=== PATIENT | female | born 1980 | race Caucasian/White ===

== ENCOUNTER 2017-10-23 08:00 | Emergency (ER) | payer SELFPAY ==
[2017-10-23] MEDS ORDERED: Ketorolac Tromethamine 30 MG/ML VIAL ONE (09:17)
[2017-10-23] MEDS ORDERED: Fentanyl 100 MCG/2 ML VIAL ONE (09:17)
[2017-10-23] MEDS ORDERED: Ondansetron HCl/PF 4 MG/2 ML Vial ONE (09:17)
[2017-10-23] MEDS ORDERED: Dexamethasone 10 MG/ML VIAL ONE (09:17)
[2017-10-23] MEDS ORDERED: Metoclopramide HCl 10 MG/2 ML VIAL ONE (09:17)
== END 2017-10-23 10:42 | disposition home or self-care (01) ==
LOC: ERS 08:00
DX: G43.909 Migraine, unspecified, not intractable, without status migrainosus (principal); F17.210 Nicotine dependence, cigarettes, uncomplicated
CPT/HCPCS: 96365; 96375; J1100; J1885; J2405; J2765; J3010

== ENCOUNTER 2017-10-26 09:19 | Emergency (ER) | payer SELFPAY ==
[2017-10-26 09:48] LABS: Bilirubin Negative (Negative); Blood, Urine Moderate (Negative); Clarity TURBID (Clear); Glucose, Urine (Dipstick) Negative (Negative); Leukocyte Large (Negative); Nitrite Negative (Negative); Protein, Urine (Dipstick) 100 mg/dL (Neg-Trace); Specific Gravity, Urine 1.009 (1.002-1.036); pH, Urine 6.5 (5.0-9.0)
[2017-10-26 09:49] LABS: Bacteria/HPF 2+ HPF (None Seen); Hyaline Casts/LPF 0-3 HYALINE CAST LPF (0-3 Hyaline); Pathc Cast-AUWi Flag 0.31 (0-2.49); Squamous Epithelial None Seen HPF (0-3)
[2017-10-26 09:57] LABS: Yeast-AUWi Flag 277.9 (0-25.0)
[2017-10-26] MEDS ORDERED: Nitrofurantoin Monohyd/M-Cryst 100 MG CAP PO SCH (10:00)
[2017-10-26 10:01] LABS: Pregnancy Test - Urine (BHCG) Negative (Negative); Pregu Control Background? CLEAR/WHITE (CLR/WHITE); Pregu Control Bar Appear? YES (CONTROL BAR); Specific Gravity 1.009 (1.002-1.036)
[2017-10-26 10:17] LABS: Renal Epithelial 0-3 HPF (0-3); Yeast-All Forms None Seen HPF (None Seen)
== END 2017-10-26 10:51 | disposition home or self-care (01) ==
LOC: ERS 09:19
DX: N39.0 Urinary tract infection, site not specified (principal); G43.909 Migraine, unspecified, not intractable, without status migrainosus; F17.210 Nicotine dependence, cigarettes, uncomplicated
CPT/HCPCS: 81003; 81015; 81025; 87077; 87086; 87186; 99406

== ENCOUNTER 2017-10-28 10:35 | Inpatient (IN) | payer SELFPAY ==
[2017-10-28] MEDS ORDERED: Ondansetron HCl/PF 4 MG/2 ML Vial ONE ×2 (11:19→13:27)
[2017-10-28 11:23] LABS: Band 3 % (5-11); Hemoglobin 16.3 g/dL (12.0-16.0); Lymphocytes 8 % (21-51); MDiff Complete? YES; Mean Corpuscular HGB CONC 33.5 g/dL (32.0-36.0); Mean Corpuscular Hemoglobin 31.4 pg (27.0-31.0); Mean Corpuscular Volume 93.6 fl (81.0-99.0); Mean Platelet Volume 6.8 fL (7.4-10.4); Monocytes 12 % (0-10); Neutrophil 77 % (42-75); Platelet Count 313 thou/uL (130-400); RBC Distribution Width 11.2 % (11.5-14.5); Red Blood Cell (RBC) Count 5.19 mill/uL (4.20-5.40); White Blood Cell (WBC) Count 23.1 thou/uL (4.8-10.8)
[2017-10-28 11:40] LABS: Bilirubin Large (Negative); Blood, Urine Large (Negative); Clarity CLOUDY (Clear); Glucose, Urine (Dipstick) Negative (Negative); Leukocyte Moderate (Negative); Nitrite Positive (Negative); Protein, Urine (Dipstick) 100 mg/dL (Neg-Trace); Specific Gravity, Urine 1.024 (1.002-1.036); pH, Urine 5.5 (5.0-9.0)
[2017-10-28 11:43] LABS: ALT (SGPT) 109 U/L (8-55); AST (SGOT) 45 U/L (5-34); Albumin 4.3 g/dL (3.5-5.0); Alkaline Phosphatase 128 U/L (40-150); Anion Gap 15 mmol/L (10-20); BUN (Urea Nitrogen) 6 mg/dL (7.0-18.7); Bilirubin, Total 1.6 mg/dL (0.2-1.2); Calc. Creatinine Clearance 0 mL/min (70-130); Calcium 10.1 mg/dL (7.8-10.44); Carbon Dioxide 22 mmol/L (22-29); Chloride 101 mmol/L (98-107); Estimated GFR-MDRD 76; Globulin 3.8 g/dL (2.4-3.5); Glucose 102 mg/dL (70-105); Potassium 3.8 mmol/L (3.5-5.1); Protein, Total 8.1 g/dL (6.0-8.3); Sodium 134 mmol/L (136-145)
[2017-10-28 11:45] LABS: Hyaline Casts/LPF 0-3 HYALINE CAST LPF (0-3 Hyaline); Squamous Epithelial 0-3 HPF (0-3); WBC/HPF 21-50 HPF (0-3)
[2017-10-28 11:51] LABS: Pregnancy Test - Urine (BHCG) Negative (Negative); Pregu Control Background? CLEAR/WHITE (CLR/WHITE); Pregu Control Bar Appear? YES (CONTROL BAR); Specific Gravity 1.024 (1.002-1.036); Yeast-AUWi Flag 61.9 (0-25.0)
[2017-10-28] MEDS ORDERED: Ketorolac Tromethamine 30 MG/ML VIAL ONE (11:56)
[2017-10-28 12:01] LABS: Bacteria/HPF 2+ HPF (None Seen); RBC/HPF 21-50 HPF (0-3); Yeast-All Forms None Seen HPF (None Seen)
[2017-10-28] MEDS ORDERED: cefTRIAXone\\ROCEPHIN 2 GM in Sodium Chloride 0.9% 100 ML IVPB SCH (13:30)
[2017-10-28 15:56] VITALS: BMI 29.3
[2017-10-28] MEDS ORDERED: Acetaminophen 325 MG TAB PO PRN (15:57)
[2017-10-28] MEDS ORDERED: Ondansetron HCl/PF 4 MG/2 ML Vial IVP PRN (15:57)
[2017-10-28] MEDS ORDERED: Ondansetron ODT 4 MG TAB SL PRN (15:57)
[2017-10-28] MEDS ORDERED: Dextrose 5 %-0.45 % NaCl 1,000 ML IV SCH (16:00)
--- NOTE | 2017-10-28 16:43 | CT ---
CT ABDOMEN AND PELVIS NONCONTRAST: History: Left flank pain. Comparison: 03-11-12 FINDINGS: Each renal collecting system, ureter, and the urinary bladder are decompressed without stone apparent . Lack of contrast limits evaluation for other abnormalities. No evidence of bowel obstruction. Minimal stranding is present within the left perinephric fat. Sterilization clips are apparent at each adnex a. IMPRESSION: 1. No CT evidence of urinary tract obstruction or calcification. 2. Subtle stranding in the fat around the left kidney suggests adjacent inflammation. Clinical correl ation regarding other signs and symptoms of left nephritis is required. POS: [facility]
[2017-10-28] MEDS ORDERED: Senokot 8.6 MG TAB PO PRN (16:46)
[2017-10-28] MEDS ORDERED: Docusate 100 MG CAP PO PRN (16:46)
[2017-10-28] MEDS ORDERED: Ketorolac Tromethamine 30 MG/ML VIAL IVP PRN (16:51)
[2017-10-28] MEDS: Sodium Chloride 0.9% 1,000 ML IV SCH (18:35)
[2017-10-28 18:37] LABS: HBSAg Index 0.16 S/CO (0-0.99); Hep B Surf Ag Non-Reactive S/CO (NonReactive); Hep C IgG Ab Non-Reactive (NonReactive)
[2017-10-28 18:38] LABS: HBSAB Concentration 0.13 mIU/mL; Hep B Surf AB Non-Reactive (NonReactive)
[2017-10-28 18:42] LABS: Hep B Core Total Ab Non-Reactive (NonReactive); Hep B Core Total Index 0.07 S/CO (0-0.79)
[2017-10-28 18:45] LABS: HIV (1/2) Antibody/Antigen Non-Reactive (NonReactive); HIV 1/2 INDEX 0.21 S/CO (<1.00)
--- NOTE | 2017-10-28 19:59 | HP-2 ---
DATE OF ADMISSION: 10/28/2017 PRIMARY CARE PHYSICIAN: Mal Burgess. ATTENDING: Hernan Frazier M.D. RESIDENT: Aby Carrillo MD HISTORIAN: Patient. CHIEF COMPLAINT: Dysuria and fever. HISTORY OF PRESENT ILLNESS: This is a 37-year-old female with a recent diagnosis of UTI on Sunday in the ER. She was discharged and sent home on ; however, she states over the weekend she had worsening dysuria, lower back pain, and fever which prompted her to come back to the ER. In the ER, she received Toradol, morphine, Rocephin, 2 liters normal saline, and Zofran. PAST MEDICAL HISTORY: Migraines and pain. PAST SURGICAL HISTORY: Two C-sections and bilateral tubal ligation. ALLERGIES: None. MEDICATIONS: None. FAMILY HISTORY: None. SOCIAL HISTORY: Endorses 1 pack per day for 20 years. Alcohol, drinks occasionally. Drugs, endorses marijuana use approximately 1 month ago. REVIEW OF SYSTEMS: GENERAL: Endorses fevers and chills. Denies weight, appetite or sleep changes. EYES: No vision changes or eye pain. ENT: No nasal congestion or rhinorrhea. RESPIRATORY: No cough, congestion, shortness of breath. CARDIOVASCULAR: No chest pain or palpitations or edema. GASTROINTESTINAL: Endorses nausea and vomiting since . Endorses diarrhea since Sunday, says it is watery. GENITOURINARY: Denies incontinence or dysuria. SKIN: Denies rashes or lesions. MUSCULOSKELETAL: Denies pain or tenderness. NEUROLOGIC: Denies weakness, numbness, but does endorse a headache. PSYCHIATRIC: Denies anxiety, depression. PHYSICAL EXAMINATION: VITAL SIGNS: Blood pressure 109/65, pulse of 75-115, respiratory rate 20-24, T- max 99, pulse ox 98% on room air, current weight 80 kilograms. GENERAL: Alert and oriented x4 currently in pain, well nourished, appropriately interactive. EYES: PERRLA, EOMI. ENT: Nasal mucosa and oropharynx within normal limit. NECK: Supple. No lymphadenopathy or thyromegaly. CARDIOVASCULAR: Regular rate and rhythm. No murmur, rub, or gallop. LUNGS: Normal effort, no retractions, clear to auscultation bilaterally. SKIN: Warm and dry. No rash. ABDOMEN: Soft, tender to palpation in the left upper quadrant. CVA tenderness on the left side. EXTREMITIES: No clubbing, cyanosis or edema. MUSCULOSKELETAL: Structure within normal limits. Full range of motion. NEUROLOGIC: GCS of 15. PSYCHIATRIC: Appropriate. LABORATORY DATA: CBC: 23.1, 16.3, 48.5, 330. CMP: 134, 3.8, 101, 22, 6, 6.84, 102. AST and ALT 45 and 109, alkaline phosphatase 128. Calcium 10.1, total protein 8.1, albumin 4.3, total bilirubin 1.6. UA, blood large, protein high, leukocyte esterase moderate, nitrites positive, ketones 15, glucose negative, rbc 21-50, white blood cells 21-50, bacteria 2+, positive urobilinogen. Beta hCG negative. No yeast seen. IMAGING: Abdominal CT negative for urinary tract obstruction or calcification, left kidney positive for stranding. Negative for bowel obstruction. ASSESSMENT AND PLAN: This is a 37-year-old female with symptoms of dysuria admitted with symptoms of dysuria. She has failed outpatient treatment for urinary tract infection, admitted for sepsis secondary to pyelonephritis and elevated liver function tests. 1. Sepsis secondary to pyelonephritis. She was admitted to inpatient medical, started on Rocephin IV and normal saline 150 mL an hour. Blood and urine cultures were drawn. CBC and BMP will be repeated in the morning. Vitals q.4 hours. Monitor urine output, strict I's and O's. Morphine q.2 hours 2 mg p.r.n. Toradol 30mg IV q6h prn pain as well. 2. Elevated liver enzymes. We will order a hepatitis panel, direct, bilirubin , and HIV to further assess. DISPOSITION AND LENGTH OF HOSPITAL STAY: 3 days. Symptomatic medications will be provided. History and physical exam as well as management were discussed with Dr. Frazier and Dr. Quintana. [place]
[2017-10-28] MEDS ORDERED: FLU VACC QS2017-18 36 mo. & older 0.5 ML SYRINGE IM ONE (21:00)
[2017-10-29] MEDS: Sodium Chloride 0.9% 1,000 ML IV SCH ×4 (00:17→23:55)
--- NOTE | 2017-10-29 06:32 | PDOC.FM ---
- Subjective Subjective: No acute events overnight; Pain uncontrolled. Otherwise no complaints - Objective MAR Reviewed: Yes Vital Signs & Weight: Vital Signs (12 hours) Temp Pulse Resp BP Pulse Ox 10/29/17 05:41 99 F 87 18 113/71 95 10/28/17 22:17 99.1 F 88 20 110/71 98 10/28/17 20:00 97.5 F L 80 14 98 Weight Weight 85.049 kg I&O: 10/27/17 10/28/17 10/29/17 06:59 06:59 06:59 Intake Total 2089 Output Total 0 Balance 2089 Result Diagrams: 10/29/17 07:43 10/29/17 05:10 <Aby Salcedo - Last Filed: 10/29/17 09:11> - Objective Vital Signs & Weight: Vital Signs (12 hours) Temp Pulse Resp BP Pulse Ox 10/29/17 12:00 97.7 F 74 18 113/73 98 10/29/17 08:00 98.6 F 83 16 96 10/29/17 07:51 98.6 F 83 16 95/64 96 10/29/17 05:41 99 F 87 18 113/71 95 Weight Admit Weight 85.049 kg Weight 85.049 kg I&O: 10/28/17 10/29/17 10/30/17 06:59 06:59 06:59 Intake Total 2089 Output Total 0 Balance 2089 Result Diagrams: 10/29/17 07:43 10/29/17 05:10 <Shavonne Crum - Last Filed: 10/29/17 17:10> Phys Exam - Physical Examination Constitutional: NAD Respiratory: wheezing present, clear to auscultation bilateral crackles on the left side Cardiovascular: RRR, no significant murmur Gastrointestinal: soft cva left tenderness, suprapubic tenderness <Aby Salcedo - Last Filed: 10/29/17 09:11> Dx/Plan (1) Pyelonephritis Code(s): N12 - TUBULO-INTERSTITIAL NEPHRITIS, NOT SPCF ACUTE OR CHRONIC Status: Acute (2) Sepsis Code(s): A41.9 - SEPSIS, UNSPECIFIED ORGANISM Status: Acute (3) Elevated LFTs Code(s): R79.89 - OTHER SPECIFIED ABNORMAL FINDINGS OF BLOOD CHEMISTRY Status : Acute (4) Hyperbilirubinemia Code(s): E80.6 - OTHER DISORDERS OF BILIRUBIN METABOLISM Status: Acute (5) Tobacco abuse Code(s): Z72.0 - TOBACCO USE Status: Acute (6) Increased sputum production Code(s): R09.3 - ABNORMAL SPUTUM Status: Acute - Plan Plan: 37 yo f with failed outpt treatment of UTI, admitted for sepsis 2/2 pyelonephritis. 1.)Sepsis 2/2 pyelonephritis- improved. -Continue rocephin -Blood and urine cultures pending -Prior UA grew e.coli (sens to rocephin) -Continue NS @ 150 ml/hr 2.)Pain control-uncontrolled on morphine 2mg q2h -Will add toradol 30mg IV q6h prn pain 3.)Elevated LFT's-CT abdomen said gall bladder and pancreas were normal -Will trend LFT's -Hep panel negative - HIV negative 4.)Hyperbilirubinemia-ordered a direct bili 5.)Current Tobacco use, with increased sputum, green colored-ordered a CXR <Aby Salcedo - Last Filed: 10/29/17 09:11> Attending Addendum - Attending Addendum I personally evaluated the patient and discussed the management with Dr. Salcedo. I agree with the History, Examination, Assessment and Plan documented above with any addition or exceptions noted below. The patient is still having more pain. Will add toradol. The patient will continue antibiotics. Cultures pending. <Shavonne Crum - Last Filed: 10/29/17 17:10>
[2017-10-29 06:49] LABS: Anion Gap 10 mmol/L (10-20); BUN (Urea Nitrogen) Less than 4 mg/dL (7.0-18.7); Calc. Creatinine Clearance 164 mL/min (70-130); Calcium 8.2 mg/dL (7.8-10.44); Carbon Dioxide 19 mmol/L (22-29); Chloride 106 mmol/L (98-107); Estimated GFR-MDRD Greater than 90; Glucose 97 mg/dL (70-105); Potassium 3.4 mmol/L (3.5-5.1); Sodium 132 mmol/L (136-145)
[2017-10-29 08:17] LABS: #Basophils 0.1 thou/uL (0.0-0.2); #Eosinphils 0.1 thou/uL (0.0-0.7); #Lymphocytes 2.5 thou/uL (1.20-3.40); #Monocytes 1.7 thou/uL (0.11-0.59); %Basophils 0.9 % (0.0-1.0); %Eosinophils 0.4 % (0.0-10.0); %Lymphocytes 20.3 % (21.0-51.0); %Monocytes 13.4 % (0.0-10.0); Hemoglobin 11.8 g/dL (12.0-16.0); Mean Corpuscular HGB CONC 33.6 g/dL (32.0-36.0); Mean Corpuscular Hemoglobin 31.8 pg (27.0-31.0); Mean Corpuscular Volume 94.7 fl (81.0-99.0); Mean Platelet Volume 6.8 fL (7.4-10.4); Platelet Count 295 thou/uL (130-400); RBC Distribution Width 11.1 % (11.5-14.5); Red Blood Cell (RBC) Count 3.71 mill/uL (4.20-5.40); White Blood Cell (WBC) Count 12.3 thou/uL (4.8-10.8)
[2017-10-29 10:36] LABS: Bilirubin, Direct 0.4 mg/dL (0.1-0.3)
[2017-10-29] MEDS ORDERED: Ketorolac Tromethamine 30 MG/ML VIAL IVP SCH (10:38)
[2017-10-29] MEDS: Ketorolac Tromethamine 30 MG/ML VIAL IVP SCH ×4 (10:40→23:56)
[2017-10-29] MEDS: Ondansetron HCl/PF 4 MG/2 ML Vial IVP PRN ×2 (10:40→17:37)
--- NOTE | 2017-10-29 11:10 | RAD ---
PA AND LATERAL VIEWS CHEST: HISTORY: Cough. FINDINGS: The cardiomediastinum is normal. The lungs are expanded without focal areas of consolidation, pneumo thorax, or pleural effusions. There are mild degenerative changes in the spine. Bilateral nipple pi ercings are present. IMPRESSION: No radiographic evidence of acute cardiopulmonary process. POS: [facility]
[2017-10-29] MEDS: cefTRIAXone\\ROCEPHIN 2 GM in Sodium Chloride 0.9% 100 ML IVPB SCH (15:59)
[2017-10-30] MEDS: Sodium Chloride 0.9% 1,000 ML IV SCH ×2 (03:18→14:16)
[2017-10-30 05:29] LABS: #Eosinphils 0.1 thou/uL (0.0-0.7); #Monocytes 0.8 thou/uL (0.11-0.59); %Basophils 0.4 % (0.0-1.0); %Eosinophils 1.4 % (0.0-10.0); %Lymphocytes 28.8 % (21.0-51.0); %Neutrophils 58.4 % (42.0-75.0); Hemoglobin 11.9 g/dL (12.0-16.0); Mean Corpuscular HGB CONC 31.9 g/dL (32.0-36.0); Mean Corpuscular Hemoglobin 30.5 pg (27.0-31.0); Mean Corpuscular Volume 95.6 fl (81.0-99.0); Mean Platelet Volume 8.4 fL (7.4-10.4); Platelet Count 108 thou/uL (130-400); RBC Distribution Width 11.4 % (11.5-14.5); Red Blood Cell (RBC) Count 3.91 mill/uL (4.20-5.40); White Blood Cell (WBC) Count 6.9 thou/uL (4.8-10.8)
[2017-10-30] MEDS: Ketorolac Tromethamine 30 MG/ML VIAL IVP SCH ×2 (05:43→14:00)
[2017-10-30 06:41] LABS: Anion Gap 9 mmol/L (10-20); BUN (Urea Nitrogen) 5 mg/dL (7.0-18.7); Calc. Creatinine Clearance 148 mL/min (70-130); Calcium 8.1 mg/dL (7.8-10.44); Carbon Dioxide 22 mmol/L (22-29); Chloride 108 mmol/L (98-107); Estimated GFR-MDRD Greater than 90; Glucose 83 mg/dL (70-105); Potassium 3.1 mmol/L (3.5-5.1); Sodium 136 mmol/L (136-145)
--- NOTE | 2017-10-30 07:00 | PDOC.FM ---
- Subjective Subjective: No acute events overnight. Pain controlled. - Objective MAR Reviewed: Yes Vital Signs & Weight: Vital Signs (12 hours) Temp Pulse Resp BP Pulse Ox 10/30/17 06:04 99.1 F 10/30/17 00:05 98.5 F 76 18 104/71 97 10/29/17 20:00 98.2 F 72 16 102/71 98 Weight Admit Weight 85.049 kg Weight 85.049 kg I&O: 10/28/17 10/29/17 10/30/17 06:59 06:59 06:59 Intake Total 2090 5350 Output Total 0 Balance 2089 5350 Result Diagrams: 10/30/17 05:11 10/30/17 05:11 <Aby Salcedo - Last Filed: 10/30/17 09:25> - Objective Vital Signs & Weight: Vital Signs (12 hours) Temp Pulse Resp BP Pulse Ox 10/30/17 12:00 97.4 F L 69 18 116/76 96 10/30/17 08:42 98.2 F 65 16 116/80 94 L 10/30/17 08:00 98.2 F 65 16 94 L 10/30/17 06:04 99.1 F Weight Admit Weight 85.049 kg Weight 85.049 kg I&O: 10/29/17 10/30/17 10/31/17 06:59 06:59 06:59 Intake Total 0 5350 Output Total 0 Balance 2089 5350 Result Diagrams: 10/30/17 05:11 10/30/17 05:11 <Shavonne Crum - Last Filed: 10/30/17 16:59> Phys Exam - Physical Examination Constitutional: NAD HEENT: PERRLA, moist MMs Respiratory: no wheezing, no rales, clear to auscultation bilateral Cardiovascular: RRR, no significant murmur Gastrointestinal: soft, non-tender, no distention Musculoskeletal: no edema Neurological: non-focal Psychiatric: normal affect, A&O x 3 Skin: no rash <Aby Salcedo - Last Filed: 10/30/17 09:25> Dx/Plan (1) Pyelonephritis Code(s): N12 - TUBULO-INTERSTITIAL NEPHRITIS, NOT SPCF ACUTE OR CHRONIC Status: Acute (2) Sepsis Code(s): A41.9 - SEPSIS, UNSPECIFIED ORGANISM Status: Acute (3) Elevated LFTs Code(s): R79.89 - OTHER SPECIFIED ABNORMAL FINDINGS OF BLOOD CHEMISTRY Status : Acute (4) Hyperbilirubinemia Code(s): E80.6 - OTHER DISORDERS OF BILIRUBIN METABOLISM Status: Acute (5) Tobacco abuse Code(s): Z72.0 - TOBACCO USE Status: Acute (6) Increased sputum production Code(s): R09.3 - ABNORMAL SPUTUM Status: Acute - Plan Plan: 37 yo f with failed outpt treatment of UTI, admitted for sepsis 2/2 pyelonephritis. 1.)Sepsis 2/2 pyelonephritis- improved. -Continue rocephin -Blood and urine cultures pending -Prior UA grew e.coli (sens to rocephin) -We will decrease fluids today to NS @ 100 ml/hr 2.)Pain control-controlled. - continue morphine 2mg q2h - Will continue toradol 30mg IV q6h prn pain 3.)Elevated LFT's-CT abdomen said gall bladder and pancreas were normal -Will trend LFT's -Hep panel negative - HIV negative 4.)Hyperbilirubinemia- - direct bili elevated 5.)Current Tobacco use- counceled on cessation. <Aby Salcedo - Last Filed: 10/29/17 09:11> <Aby Salcedo - Last Filed: 10/30/17 09:25> Attending Addendum - Attending Addendum I personally evaluated the patient and discussed the management with Dr. Salcedo. I agree with the History, Examination, Assessment and Plan documented above with any addition or exceptions noted below. Patient's pain is resolved. Appetite is improved. Will d/c on oral antibiotics. <Shavonne Crum - Last Filed: 10/30/17 16:59>
[2017-10-30] MEDS ORDERED: Ibuprofen 800 MG TAB PO PRN (11:28)
[2017-10-30 12:15] VITALS: BP 116/76; TEMP 97.4
[2017-10-30] MEDS ORDERED: Ketorolac Tromethamine 30 MG/ML VIAL IVP SCH (14:30)
[2017-10-30] MEDS: cefTRIAXone\\ROCEPHIN 2 GM in Sodium Chloride 0.9% 100 ML IVPB SCH (15:26)
[2017-10-30] MEDS ORDERED: buPROPion 75 MG TAB PO SCH (21:00)
--- NOTE | 2017-11-01 15:33 | DIS-2 ---
DATE OF ADMISSION: 10/28/2017 DATE OF DISCHARGE: 10/30/2017 ADMITTING ATTENDING: Dr. Hernan Frazier ADMITTING RESIDENT: Dr. Aby Carrillo DISCHARGE ATTENDING: Dr. Shavonne Crum DISCHARGE RESIDENT: Dr. Aby Carrillo CONSULTATIONS: None. PROCEDURES: Abdomen and pelvis CT, no CT evidence of urinary tract obstruction or calcification. Subtle stranding in the fat around the left kidney, suggests adjacent inflammation. Clinical correlation regarding other signs and symptoms of left nephritis is required. Chest x-ray; no radiographic evidence of acute cardiopulmonary process. PRIMARY DIAGNOSES: 1. Sepsis secondary to pyelonephritis. 2. Pyelonephritis. DISCHARGE MEDICATIONS: 1. Ciprofloxacin 500 mg oral twice daily. 2. Ibuprofen 800 mg oral 3 times a day as needed for pain. 3. Bupropion 150 mg oral twice daily for smoking cessation. HISTORY OF PRESENT ILLNESS AND HOSPITAL COURSE: Ms. Dora Tolbert is a 37- year-old female with a recent diagnosis of UTI in the ER, was sent home on Macrobid; however returns with worsening pain and fever over the weekend. She in the ER was given Toradol, morphine, Rocephin, and 2 liters normal saline and Zofran. She has a past medical history of migraines. She is an active smoker, endorsed 1 pack per day for 20 years. On admission, she had a leukocytosis of 23, she had elevated liver enzymes of 45 and 109, and a normal alkaline phosphatase of 128. Her urine showed a large amount of blood and protein, leukocyte esterase, positive nitrites, positive 15 ketones, negative for glucose, red blood cells at 21-50, white blood cells 20-50, 2+ bacteria, positive urobilinogen. Her beta hCG was negative. Her vitals on admission: she was tachycardic to 115. She had increased respiratory rate of 20-24. She had a temperature of 99. She was satting 98% on room air. On initial exam, she had CVA tenderness on the left side. Otherwise, her belly was soft and mildly tender in the left upper quadrant. Cardiovascular exam showed a regular rate and rhythm. No murmurs or gallops. Lungs showed normal effort, no retractions, clear to auscultation bilaterally. Her abdominal CT was negative for urinary tract obstruction or calcification. There was some left kidney stranding, but also negative for bowel obstruction. She was admitted for sepsis secondary to pyelonephritis on the left kidney as well as elevated liver enzymes. 1. Sepsis secondary to pyelonephritis. She was admitted inpatient medical started on Rocephin IV was provided with normal saline at 150 an hour. Blood and urine cultures were drawn. Repeat CBC and BMPs were placed. Her vitals were checked every 4 hours. Urine output was monitored. She was started on morphine q.2h. of 2 mg p.r.n. for pain as well as Toradol 30 mg IV q.6h. p.r.n. pain. Overnight and the following day, her pain became adequately controlled. She improved on Rocephin IV. On hospital day #2, she was continued on Rocephin IV. At 5 days her blood culture was negative. Her initial urine culture from the Sunday before she was admitted grew E. coli which was sensitive to ceftriaxone. She was transitioned to ciprofloxacin p.o. The culture was sensitive to this medicine as well and when she was tolerating p.o., we transitioned her over. Of note, this UTI was resistant to Bactrim, ampicillin, and sulbactam and gentamicin. During her hospitalization, her vitals were within normal limits. She was transitioned off IV fluids and p.o. intake was encouraged. She was discharged on p.o. ciprofloxacin 500 mg for a total of 10 days. For pain control she was provided with 800 mg ibuprofen t.i.d. p.r.n. pain and it was recommended that she follow up with her primary care physician within 1 week. 2. Elevated liver function tests. The CT of the abdomen reported that the gallbladder and pancreas were within normal limits. Her LFTs were trended. Her hepatitis panel was negative. Her HIV was negative. Her LFTs down trended during her hospitalization. 3. Hyperbilirubinemia. She had an elevated total and direct bilirubin. Once again never described any right upper quadrant pain. No evidence of gallstones on abdominal CT. Recommended outpatient followup. DISPOSITION: Stable. DISCHARGE INSTRUCTIONS: 1. Location: Home. 2. Diet: Encouraged p.o. intake of adequate water intake. Recommended a heart healthy diet. 3. Activity: As tolerated. 4. Followup: Recommended follow up with primary care physician within 1 week. [place]
== END 2017-10-30 15:49 | disposition home or self-care (01) | DRG 872 ==
LOC: ERS 10:35 → T4-B 15:53
PROVIDERS: ADMIT Family Medicine; ATTEND Family Medicine
DX: A41.9 Sepsis, unspecified organism (principal); N10 Acute pyelonephritis; E80.6 Other disorders of bilirubin metabolism; F17.210 Nicotine dependence, cigarettes, uncomplicated; R09.3 Abnormal sputum
CPT/HCPCS: 36415; 71046; 74176; 80048; 80053; 81003; 81015; 81025; 82248; 83605; 84450; 84460; 85025; 86704; 86706; 86708; 86803; 87040; 87086; 87340; 87389; 96361; 96374; 96375; 96376; 99406; J0696; J1885; J2270; J2405; J7050

== ENCOUNTER 2018-04-03 15:03 | Emergency (ER) | payer SELFPAY ==
[2018-04-03] MEDS ORDERED: Ondansetron HCl/PF 4 MG/2 ML Vial ONE (16:56)
[2018-04-03] MEDS ORDERED: Morphine 4 MG/ML VIAL ONE ×2 (16:56→20:05)
[2018-04-03 17:17] LABS: #Basophils 0.1 thou/uL (0.0-0.2); #Eosinphils 0.1 thou/uL (0.0-0.7); #Monocytes 0.7 thou/uL (0.11-0.59); #Neutrophils 8.2 thou/uL (1.40-6.50); %Basophils 0.4 % (0.0-1.0); %Eosinophils 0.6 % (0.0-10.0); %Lymphocytes 24.8 % (21.0-51.0); %Monocytes 6.1 % (0.0-10.0); %Neutrophils 68.2 % (42.0-75.0); Hemoglobin 14.8 g/dL (12.0-16.0); Mean Corpuscular Hemoglobin 31.5 pg (27.0-31.0); Mean Corpuscular Volume 92.5 fL (78.0-98.0); Mean Platelet Volume 6.5 fL (7.4-10.4); Platelet Count 295 thou/uL (130-400); RBC Distribution Width 11.6 % (11.5-14.5); Red Blood Cell (RBC) Count 4.71 mill/uL (4.20-5.40); White Blood Cell (WBC) Count 12.1 thou/uL (4.8-10.8)
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
--- NOTE | 2018-04-03 17:35 | RAD ---
RIGHT ELBOW FOUR VIEWS: 04/03/18 HISTORY: Pain. Injury. COMPARISON: None. FINDINGS: No joint effusion. Joint spaces are preserved. No fracture or malalignment. Chronic changes are noted . IMPRESSION: No posttraumatic change. POS: [facility]
[2018-04-03 17:46] LABS: ALT (SGPT) 26 U/L (8-55); AST (SGOT) 16 U/L (5-34); Albumin 4.3 g/dL (3.5-5.0); Alkaline Phosphatase 65 U/L (40-150); Anion Gap 10 mmol/L (10-20); BUN (Urea Nitrogen) 6 mg/dL (7.0-18.7); Bilirubin, Total 0.7 mg/dL (0.2-1.2); Calc. Creatinine Clearance 0 mL/min (70-130); Calcium 9.1 mg/dL (7.8-10.44); Carbon Dioxide 24 mmol/L (22-29); Chloride 106 mmol/L (98-107); Estimated GFR-MDRD 87; Globulin 2.6 g/dL (2.4-3.5); Glucose 91 mg/dL (70-105); Potassium 3.1 mmol/L (3.5-5.1); Protein, Total 6.9 g/dL (6.0-8.3); Sodium 137 mmol/L (136-145)
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
[2018-04-03] MEDS ORDERED: Ketorolac Tromethamine 30 MG/ML VIAL ONE (19:02)
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
== END 2018-04-03 20:40 | disposition home or self-care (01) ==
LOC: ERS 15:03
DX: S06.9X9A Unspecified intracranial injury with loss of consciousness of unspecified duration, initial encounter (principal); S02.2XXA Fracture of nasal bones, initial encounter for closed fracture; S00.83XA Contusion of other part of head, initial encounter; S50.11XA Contusion of right forearm, initial encounter; Z71.6 Tobacco abuse counseling; F17.210 Nicotine dependence, cigarettes, uncomplicated; G43.909 Migraine, unspecified, not intractable, without status migrainosus; Y04.0XXA Assault by unarmed brawl or fight, initial encounter
CPT/HCPCS: 29125; 70450; 70486; 72125; 80053; 85025; 96361; 96374; 96375; 99406; J1885; J2270; J2405

== ENCOUNTER 2018-07-04 08:44 | Emergency (ER) | payer SELFPAY ==
[2018-07-04] MEDS ORDERED: Ondansetron ODT 4 MG TAB ONE (09:59)
[2018-07-04] MEDS ORDERED: Ibuprofen 200 MG TAB ONE ×2 (09:59→10:01)
[2018-07-04] MEDS ORDERED: Ibuprofen 800 MG TAB ONE (10:01)
== END 2018-07-04 10:05 | disposition home or self-care (01) ==
LOC: ERS 08:44
DX: J02.9 Acute pharyngitis, unspecified (principal); G43.909 Migraine, unspecified, not intractable, without status migrainosus; F17.210 Nicotine dependence, cigarettes, uncomplicated
CPT/HCPCS: 87081; 87430; 87804; 99283; Q0162

== ENCOUNTER 2018-08-29 07:52 | Emergency (ER) | payer SELFPAY ==
[2018-08-29] MEDS ORDERED: Ketorolac Tromethamine 60 MG/2 ML VIAL ONE (09:04)
[2018-08-29] MEDS ORDERED: Diazepam 5 MG TAB ONE (09:27)
== END 2018-08-29 10:15 | disposition home or self-care (01) ==
LOC: ERS 07:52
DX: M62.838 Other muscle spasm (principal); M25.512 Pain in left shoulder; G43.909 Migraine, unspecified, not intractable, without status migrainosus; F17.210 Nicotine dependence, cigarettes, uncomplicated
CPT/HCPCS: 96372; J1885

== ENCOUNTER 2019-01-11 03:36 | Emergency (ER) | payer SELFPAY ==
[2019-01-11] MEDS ORDERED: Ketorolac Tromethamine 30 MG/ML VIAL ONE (04:05)
[2019-01-11] MEDS ORDERED: HYDROmorphone 0.5 MG/0.5 ML SYRINGE ONE ×3 (04:05→05:04)
[2019-01-11 04:23] LABS: #Basophils 0.1 thou/uL (0.0-0.2); #Lymphocytes 2.2 thou/uL (1.20-3.40); #Monocytes 0.5 thou/uL (0.11-0.59); #Neutrophils 8.4 thou/uL (1.40-6.50); %Basophils 0.6 % (0.0-1.0); %Eosinophils 0.1 % (0.0-10.0); %Lymphocytes 19.3 % (21.0-51.0); %Monocytes 4.8 % (0.0-10.0); %Neutrophils 75.3 % (42.0-75.0); Hemoglobin 14.6 g/dL (12.0-16.0); Mean Corpuscular HGB CONC 33.5 g/dL (32.0-36.0); Mean Corpuscular Hemoglobin 31.7 pg (27.0-31.0); Mean Corpuscular Volume 94.5 fL (78.0-98.0); Mean Platelet Volume 6.6 fL (7.4-10.4); Platelet Count 311 thou/uL (130-400); RBC Distribution Width 11.7 % (11.5-14.5); Red Blood Cell (RBC) Count 4.61 mill/uL (4.20-5.40); White Blood Cell (WBC) Count 11.2 thou/uL (4.8-10.8)
[2019-01-11 04:45] LABS: ALT (SGPT) 61 U/L (8-55); AST (SGOT) 60 U/L (5-34); Acetaminophen Less than 6.0 mcg/mL (10.0-30.0); Albumin 4.4 g/dL (3.5-5.0); Alcohol 187 mg/dL (Less than 10); Alkaline Phosphatase 64 U/L (40-150); Anion Gap 14 mmol/L (10-20); BUN (Urea Nitrogen) 4 mg/dL (7.0-18.7); Bilirubin, Total 0.2 mg/dL (0.2-1.2); Calc. Creatinine Clearance 0 mL/min (70-130); Carbon Dioxide 22 mmol/L (22-29); Chloride 110 mmol/L (98-107); Estimated GFR-MDRD 83; Globulin 2.4 g/dL (2.4-3.5); Glucose 98 mg/dL (70-105); Potassium 3.9 mmol/L (3.5-5.1); Protein, Total 6.8 g/dL (6.0-8.3); Salicylate Less than 8.0 mg/dL (15.0-30.0); Sodium 142 mmol/L (136-145)
[2019-01-11] MEDS ORDERED: Bupivacaine 0.5% 10 ML VIAL ONE ×2 (05:00→05:27)
[2019-01-11] MEDS ORDERED: Bacitracin Zinc 1 Packet ONE (05:38)
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
--- NOTE | 2019-01-11 08:36 | RAD ---
EXAM: XR Hand Rt 3 View STANDARD PROVIDED CLINICAL HISTORY: Pain FINDINGS: Comparison 04/03/2018. There is no evidence for fracture or other acute osseous abnormality. Alignment appears anatomic. Joint spaces appear preserved. Stable radiodensity adjacent to the trapezium. IMPRESSION: No evidence for an acute osseous abnormality. If there is persistent clinical concern, conservative m anagement and follow-up imaging advised.
--- NOTE | 2019-01-11 08:38 | RAD ---
EXAM: XR Elbow Rt 4 View STANDARD PROVIDED CLINICAL HISTORY: Pain FINDINGS: Comparison 04/03/2018. There is no evidence for fracture or other acute osseous abnormality. Alignment appears anatomic. Joint spaces appear preserved. Stable osseous density adjacent to the coronoid process. IMPRESSION: No evidence for an acute osseous abnormality. If there is persistent clinical concern, conservative m anagement and follow-up imaging advised.
--- NOTE | 2019-01-11 08:39 | RAD ---
EXAM: XR Knee Lt 4 View STANDARD PROVIDED CLINICAL HISTORY: Pain FINDINGS: There is no evidence for fracture or other acute osseous abnormality. Alignment appears anatomic. Rehana nt spaces appear preserved. Soft tissue irregularity compatible with laceration. No evidence for radiopaque foreign body. IMPRESSION: No evidence for an acute osseous abnormality. If there is persistent clinical concern, conservative m anagement and follow-up imaging advised.
[2019-01-11] MEDS ORDERED: ISOVUE-370 76%-LOCM 1 ML ONE (16:51)
== END 2019-01-11 06:50 | disposition home or self-care (01) ==
LOC: ERS 03:36
DX: S81.011A Laceration without foreign body, right knee, initial encounter (principal); G43.909 Migraine, unspecified, not intractable, without status migrainosus; F17.210 Nicotine dependence, cigarettes, uncomplicated; V49.9XXA Car occupant (driver) (passenger) injured in unspecified traffic accident, initial encounter
CPT/HCPCS: 12002; 36415; 70450; 71045; 80053; 80307; 85025; 96361; 96374; 96375; 96376; J1170; J1885; J3490; Q9966

== ENCOUNTER 2019-01-12 21:05 | Emergency (ER) | payer SELFPAY | END 2019-01-12 22:00 | disposition left against medical advice (07) | LOC: ERS 21:05 | DX: Z53.21 Procedure and treatment not carried out due to patient leaving prior to being seen by health care provider (principal) ==

== ENCOUNTER 2019-01-13 08:01 | Emergency (ER) | payer SELFPAY | END 2019-01-13 09:28 | disposition home or self-care (01) | LOC: ERS 08:01 | DX: S81.011D Laceration without foreign body, right knee, subsequent encounter (principal) | CPT/HCPCS: 99282 ==

== ENCOUNTER 2019-01-20 13:37 | Emergency (ER) | payer SELFPAY | END 2019-01-20 15:30 | disposition home or self-care (01) | LOC: ERS 13:37 | DX: S81.011D Laceration without foreign body, right knee, subsequent encounter (principal); V89.2XXD Person injured in unspecified motor-vehicle accident, traffic, subsequent encounter | CPT/HCPCS: 99282 ==

== ENCOUNTER 2019-08-18 06:56 | Emergency (ER) | payer SELFPAY ==
--- NOTE | 2019-08-18 07:30 | RAD ---
EXAM: Chest Two Views 08/18/2019 7:27 AM HISTORY: Fever body aches and vomiting COMPARISON: Prior single view the chest dated January 11, 2019 FINDINGS: Heart: Normal in size and contour. Pulmonary vessels: Normal. Costophrenic angles: Clear. Lungs: No acute airspace consolidation. Pneumothorax: None. Osseous structures:Intact. Additional findings: Metallic ornamentation overlies the lower anterior chest wall. IMPRESSION: No significant acute intrathoracic disease.
[2019-08-18] MEDS ORDERED: predniSONE 20 MG TAB ONE (08:04)
== END 2019-08-18 08:26 | disposition home or self-care (01) ==
LOC: ERS 06:56
DX: J20.9 Acute bronchitis, unspecified (principal); F17.210 Nicotine dependence, cigarettes, uncomplicated
CPT/HCPCS: 71046; 87804; 94640; J7512; J7620

== ENCOUNTER 2021-12-12 07:48 | Emergency (ER) | payer SELFPAY ==
[2021-12-12] MEDS ORDERED: Ketorolac Tromethamine 30 MG/ML VIAL ONE (08:19)
== END 2021-12-12 08:30 | disposition home or self-care (01) ==
LOC: ERS 07:48
DX: M25.571 Pain in right ankle and joints of right foot (principal); F17.210 Nicotine dependence, cigarettes, uncomplicated
CPT/HCPCS: 29515; 96372; J1885

== ENCOUNTER 2022-09-14 10:45 | Emergency (ER) | payer SELFPAY | END 2022-09-14 11:55 | disposition home or self-care (01) | LOC: ERS 10:45 | DX: R05.9 Cough, unspecified (principal); F17.210 Nicotine dependence, cigarettes, uncomplicated; Z20.822 Contact with and (suspected) exposure to COVID-19 | CPT/HCPCS: 87804; 99283; U0003; U0005 ==

== ENCOUNTER 2022-10-24 07:28 | Emergency (ER) | payer SELFPAY | END 2022-10-24 08:14 | disposition home or self-care (01) | LOC: ERS 07:28 | DX: R22.42 Localized swelling, mass and lump, left lower limb (principal); F17.210 Nicotine dependence, cigarettes, uncomplicated; W57.XXXA Bitten or stung by nonvenomous insect and other nonvenomous arthropods, initial encounter | CPT/HCPCS: 99282 ==

== ENCOUNTER 2023-04-04 11:09 | Emergency (ER) | payer SELFPAY ==
[2023-04-04] MEDS ORDERED: Nitroglycerin 0.4 MG TAB 1 EACH ONE ×2 (11:42→16:04)
[2023-04-04 12:20] LABS: #Basophils 0.1 thou/uL (0.0-0.2); #Eosinphils 0.1 thou/uL (0.0-0.7); #Monocytes 0.5 thou/uL (0.11-0.59); #Neutrophils 2.7 thou/uL (1.40-6.50); %Eosinophils 2.1 % (0.0-10.0); %Lymphocytes 42.7 % (21.0-51.0); %Monocytes 7.7 % (0.0-10.0); %Neutrophils 46.3 % (42.0-75.0); Mean Corpuscular HGB CONC 33.6 g/dL (32.0-36.0); Mean Corpuscular Volume 92.1 fl (78.0-98.0); Mean Platelet Volume 9.1 fL (7.4-10.4); Platelet Count 314 10x3/uL (130-400); RBC Distribution Width 13.6 % (11.5-14.5); White Blood Cell (WBC) Count 5.8 10x3/uL (4.8-10.8)
[2023-04-04 12:43] LABS: ALT (SGPT) 30 U/L (8-55); AST (SGOT) 16 U/L (5-34); Albumin 3.9 g/dL (3.5-5.0); Alkaline Phosphatase 59 U/L (40-110); Anion Gap 16 mmol/L (10-20); BUN (Urea Nitrogen) 11 mg/dL (7.0-18.7); Bilirubin, Total 0.2 mg/dL (0.2-1.2); Calc. Creatinine Clearance 0 mL/min (70-130); Calcium 9.2 mg/dL (7.8-10.44); Carbon Dioxide 20 mmol/L (22-29); Chloride 107 mmol/L (98-107); Estimated GFR 100; Globulin 2.4 g/dL (2.4-3.5); Glucose 93 mg/dL (70-105); Potassium 3.8 mmol/L (3.5-5.1); Protein, Total 6.3 g/dL (6.0-8.3); Sodium 139 mmol/L (136-145)
== END 2023-04-04 16:50 | disposition home or self-care (01) ==
LOC: ERS 11:09
DX: R07.9 Chest pain, unspecified (principal); R11.0 Nausea; F17.210 Nicotine dependence, cigarettes, uncomplicated
CPT/HCPCS: 36415; 71045; 80053; 84484; 85025; 85379; 93005

== ENCOUNTER 2024-09-08 11:42 | Emergency (ER) | payer SELFPAY ==
[2024-09-08 12:24] LABS: Bacteria/HPF None Seen HPF (None Seen); Bilirubin Negative (Negative); Blood, Urine 3+ (Negative); CAUTI Indications for Culture Dysuria,urgency,freq; Glucose, Urine (Dipstick) Normal (Negative); Ketone, Urine Negative (Negative); Nitrite Negative (Negative); Protein, Urine (Dipstick) 100 mg/dL (Neg-Trace); RBC/HPF Greater than 50 HPF (0-3); Urobilinogen Normal mg/dL (Less than 2)
[2024-09-08 12:32] LABS: Clarity Bloody (Clear)
[2024-09-08 12:33] LABS: Leukocyte 25 Leu/uL (Negative); Specific Gravity, Urine 1.017 (1.002-1.036)
[2024-09-08 12:36] LABS: Urine Culture Reflex Yes Yes
[2024-09-08 12:52] LABS: #Basophils 0.03 10x3/uL (0.0-0.2); %Basophils 0.4 % (0.0-1.0); %Eosinophils 1.3 % (0.0-10.0); %Lymphocytes 29.6 % (21.0-51.0); %Neutrophils 62.6 % (42.0-75.0); Hemoglobin 13.5 g/dL (12.0-16.0); Mean Corpuscular HGB CONC 33.8 g/dL (32.0-36.0); Mean Corpuscular Hemoglobin 33.4 pg (27.0-31.0); Mean Platelet Volume 9.2 fL (7.4-10.4); Platelet Count 321 10x3/uL (130-400); RBC Distribution Width 13.7 % (11.5-14.5); Red Blood Cell (RBC) Count 4.04 mill/uL (4.20-5.40)
[2024-09-08 13:13] LABS: BHCG - Serum Negative (NEGATIVE); Pregs Control Background? CLEAR/WHITE (CLR/WHITE); Pregs Control Bar Appear? YES (CONTROL BAR)
[2024-09-08 13:57] LABS: ALT (SGPT) 54 U/L (8-55); AST (SGOT) 31 U/L (5-34); Albumin 3.7 g/dL (3.5-5.0); Alkaline Phosphatase 81 U/L (40-110); Anion Gap 13 mmol/L (10-20); BUN (Urea Nitrogen) 5 mg/dL (7.0-18.7); Bilirubin, Total 0.5 mg/dL (0.2-1.2); Calc. Creatinine Clearance 0 mL/min (70-130); Carbon Dioxide 22 mmol/L (22-29); Chloride 107 mmol/L (98-107); Estimated GFR 101; Globulin 3.2 g/dL (2.4-3.5); Glucose 114 mg/dL (70-105); Potassium 3.6 mmol/L (3.5-5.1); Protein, Total 6.9 g/dL (6.0-8.3); Sodium 138 mmol/L (136-145)
[2024-09-08] MEDS ORDERED: Ondansetron ODT 4 MG TAB ONE (15:12)
[2024-09-08] MEDS ORDERED: Morphine 4 MG/ML VIAL ONE (15:13)
== END 2024-09-08 16:02 | disposition home or self-care (01) ==
LOC: ERS 11:42
DX: N93.9 Abnormal uterine and vaginal bleeding, unspecified (principal); F17.210 Nicotine dependence, cigarettes, uncomplicated
CPT/HCPCS: 36415; 76856; 80053; 81001; 84703; 85025; 86850; 86900; 86901; 87086; J2272; Q0162

== ENCOUNTER 2025-08-31 23:12 | Emergency (ER) | payer SELFPAY | END 2025-09-01 00:32 | disposition home or self-care (01) | LOC: ERS 23:12 | DX: S06.9X9A Unspecified intracranial injury with loss of consciousness of unspecified duration, initial encounter (principal); F10.129 Alcohol abuse with intoxication, unspecified; F17.210 Nicotine dependence, cigarettes, uncomplicated; Y04.2XXA Assault by strike against or bumped into by another person, initial encounter | CPT/HCPCS: 70450; 70486; 72125 ==